=== PATIENT | female | born 1955 | race Caucasian/White ===

== ENCOUNTER → 2017-07-31 | Outpatient (CLI) | payer OTHER ==
[~2017-07-31] MED LIST: ADVIN25/60 INH; ALBU1AER9 PO; ASCA500 PO; AZITTAB PO; CALC600T9 PO; CLON0.5T3 PO; CYM60 PO; DEXL60CA4 PO; FLNIN NAE; GABA800T PO; ICY HOT TOP; IPRA1AER2 INH; IPRASOL4 NEB; LIDOCAINE 5% TOP; METH10TA2 PO; MONT1TAB3 PO; MULT1CHW18 PO; NUTR-977 PO; OXGN; OXYC1TAB3 PO; PRED10TA PO; RALO60TA30 PO; RXC5 PO
--- NOTE | 2017-07-31 15:42 | DIAGNOSTIC IMAGING REPORT ---
(CHEST) THORAX WITHOUT CT DOSE: 200.70 mGy.cm HISTORY: Dyspnea R06.02 Shortness of askqsyL87.210 Cigarette nicotine dependenceP TECHNIQUE: Multiaxial CT images of the chest were performed without contrast. A dose lowering technique was utilized adhering to the principles of ALARA. COMPARISON: 05/05/2012 FINDINGS: The lungs are clear. The mediastinal vascular structures are within normal limits. No mediastinal or hilar lymphadenopathy. No pleural effusion or pneumothorax. Limited views of the upper abdomen demonstrate a normal liver and spleen. Several small mid mediastinal nodes unchanged from the prior exam. IMPRESSION: No acute process. The lungs are clear. The above report was generated using voice recognition software. It may contain grammatical, syntax or spelling errors. Electronically signed by: Lopez Leyva M.D. 07/31/2017 3:41 PM Dictated Date/Time: 07/31/2017 3:39 PM
== END | disposition home or self-care (01) ==
LOC: C.CTS 15:15
PROVIDERS: ATTEND Physician Assistant
DX: F17.210 Nicotine dependence, cigarettes, uncomplicated (principal); R06.02 Shortness of breath